=== PATIENT | male | born 1985 | race Caucasian/White ===

== ENCOUNTER 2017-09-12 23:40 | Emergency (ER) | payer SELFPAY ==
[~2017-09-12] VITALS: Ht 180.3 cm; Wt 70.8 kg
== END 2017-09-13 01:30 | disposition left against medical advice (07) ==
LOC: ER 23:40
DX: K08.9 Disorder of teeth and supporting structures, unspecified (principal)

== ENCOUNTER 2018-09-11 15:30 | Emergency (ER) | payer OTHER ==
[~2018-09-11] VITALS: Ht 180.3 cm; Wt 70.8 kg
--- OUTSIDE RECORDS SUMMARY | 2018-09-11 15:33 | XMS REPORT ---
Author Author [facility] Address Unknown Phone Unavailable Care Team Providers Care Title Specialist Name Role Phone Unavailable Unavailable Payers Payer Name Policy Type Policy Number Effective Date Expiration Date Problems This patient has no known problems. Allergies, Adverse Reactions, Alerts Allergy Name Allergy Type Status Severity Reaction(s) Onset Date Inactive Date Treating Clinician Comments No Known Allergies DA Active U 2016-02-10 00:00:00 Medications This patient has no known medications.
--- OUTSIDE RECORDS SUMMARY | 2018-09-11 15:33 | XMS REPORT | Clinical Summary ---
Author Author [facility] Organization [facility] Address Unknown Phone Unavailable Care Team Providers Care Nuclear Weapons Specialist Name Role Phone Asked, No Pcp PCP Unavailable Allergies No Known Allergies Medications End Date Status Medication Sig Dispensed Refills Start Date 08/08/2018 albuterol (PROAIR Inhale 2 1 Inhaler 0 HFA,PROVENTIL puffs every 4 8 HFA,VENTOLIN HFA) 90 (four) hours mcg/actuation inhaler as needed for wheezing for up to 30 days. 07/14/2018 predniSONE (DELTASONE) 50 Take 1 tablet 5 tablet 0 mg tablet (50 mg total) 8 by mouth daily for 5 days. Active Problems Not on file Encounters Care Team Description Date Type Specialty Kevin, Jasmine Camlio Jr., MD Shortness of breath (Primary Dx); Cough; Viral illness 07/09/2018 Emergency Emergency Medicine after 09/10/2017 Social History Date Tobacco Use Types Packs/Day Years Used Former Smoker Smokeless Tobacco: Never Used Alcohol Use Drinks/Week oz/Week Comments Yes OCCASIONAL Sex Assigned at Date Recorded Not on file Industry Job Start Date Occupation Not on file Not on file Not on file Travel End Travel History Travel Start No recent travel history available. Last Filed Vital Signs Time Taken Vital Sign Reading 07/09/2018 8:10 PM [employer] Blood Pressure 132/68 07/09/2018 8:10 PM [employer] Pulse 88 07/09/2018 8:10 PM [employer] Temperature 36.9 C (98.5 F) 07/09/2018 8:10 PM [employer] Respiratory Rate 18 07/09/2018 8:10 PM [employer] Oxygen Saturation 99% - Inhaled Oxygen - Concentration 07/09/2018 5:01 PM [employer] Weight 68 kg (150 lb) 07/09/2018 8:10 PM [employer] Height 182.9 cm (6') 07/09/2018 5:01 PM [employer] Body Mass Index 20.34 Plan of Treatment Health Maintenance Due Date Last Done Comments INFLUENZA VACCINE 04/05/2018 Procedures Comments Procedure Name Priority Date/Time Associated Diagnosis ECG 12-LEAD STAT 07/09/2018 5:49 PM [employer] ESTIMATED GFR STAT 07/09/2018 5:43 PM [employer] TROPONIN STAT 07/09/2018 5:43 PM [employer] COMPREHENSIVE METABOLIC STAT 07/09/2018 PANEL 5:43 PM [employer] HC COMPLETE BLD COUNT STAT 07/09/2018 W/AUTO DIFF 5:43 PM [employer] XR CHEST 2 VW STAT 07/09/2018 5:37 PM [employer] ECG ED PRELIMINARY Routine 07/09/2018 INTERPRETATION 5:16 PM [employer] after 09/10/2017 Results * ECG 12 lead (07/09/2018 5:49 PM [employer]) Ventricular rate 94 [facility] Atrial rate 94 [facility] [place] interval 126 [facility] QRSD interval 94 [facility] QT interval 352 [facility] QTC interval 440 [facility] P axis 1 73 [facility] QRS axis 1 71 [facility] T wave axis 77 [facility] EKG impression Normal sinus rhythm with sinus [facility] arrhythmia-Normal ECG-No previous ECGs available- Performing Organization Address City/State/Zipcode Phone Number [facility] M[facility] [address] [place] [address] * Estimated GFR (07/09/2018 5:43 PM [employer]) Estimated GFR >=90 mL/min/1.73 m2 [facility] DEPARTMENT OF Comment: PATHOLOGY AND C[employer]oryUnitsInte GENOMIC MEDICINE rpretation G1 >=90 Normal or high G2 60-89Mildly decreased [id number] Mildly to moderately decreased Q3y60-16 Moderately to severely decreased G4 15-29Severely decreased G5 <15Kidney failure The eGFR was calculated using the Chronic Kidney Disease Epidemiology Collaboration (CKD-EPI) equation. Interpretation is based on recommendations of the National Kidney Foundation-Kidney Disease Outcomes Quality Initiative (NKF-KDOQI) published in 2014. Specimen Plasma specimen Performing Organization Address City/State/Zipcode Phone Number [facility] [address] [place] [address] PATHOLOGY AND GENOMIC MEDICINE * Troponin (07/09/2018 5:43 PM [employer]) Troponin <0.30 0.00 - 0.30 ng/mL [facility] DEPARTMENT OF Comment: PATHOLOGY AND 0.11 - 1.49 GENOMIC MEDICINE ng/mlMay indicate increased risk of acute coronary syndrome. >=1.5 ng/ml Consistent with acute myocardial infarction. The diagnostic value of a single normal or non-diagnostic result is questionable.Serial samples at 2-6 hour intervals are required to rule out acute myocardial injury. Specimen Plasma specimen Performing Organization Address City/[facility]/Zipcode Phone Number [place] [address] [place] [address] PATHOLOGY AND GENOMIC MEDICINE * CBC with platelet and differential (07/09/2018 5:43 PM [employer]) WBC 8.8 4.2 - 11.0 k/uL [facility] DEPARTMENT OF PATHOLOGY AND GENOMIC MEDICINE RBC 5.10 4.04 - 5.86 m/uL [facility] DEPARTMENT OF PATHOLOGY AND GENOMIC MEDICINE HGB 16.9 13.0 - 17.3 g/dL [facility] DEPARTMENT OF PATHOLOGY AND GENOMIC MEDICINE HCT 47.7 (H) 34.0 - 45.0 % [facility] DEPARTMENT OF PATHOLOGY AND GENOMIC MEDICINE MCV 93.5 80.0 - 98.0 fL [facility] DEPARTMENT OF PATHOLOGY AND GENOMIC MEDICINE MCH 33.1 27.0 - 34.0 pg [facility] DEPARTMENT OF PATHOLOGY AND GENOMIC MEDICINE MCHC 35.4 31.5 - 36.5 g/dL [facility] DEPARTMENT OF PATHOLOGY AND GENOMIC MEDICINE RDW - SD 41.8 37.0 - 51.0 fL [facility] DEPARTMENT OF PATHOLOGY AND GENOMIC MEDICINE MPV 10.1 7.4 - 10.4 fL [facility] DEPARTMENT OF PATHOLOGY AND GENOMIC MEDICINE Platelet count 218 150 - 400 k/uL [facility] DEPARTMENT OF PATHOLOGY AND GENOMIC MEDICINE Nucleated RBC 0.00 /100 WBC [facility] DEPARTMENT OF PATHOLOGY AND GENOMIC MEDICINE Neutrophils 73.1 (H) 36.0 - 66.0 % [facility] DEPARTMENT OF PATHOLOGY AND GENOMIC MEDICINE Lymphocytes 18.3 (L) 24.0 - 44.0 % [facility] DEPARTMENT OF PATHOLOGY AND GENOMIC MEDICINE Monocytes 7.4 (H) 0.0 - 6.0 % [facility] DEPARTMENT OF PATHOLOGY AND GENOMIC MEDICINE Eosinophils 0.2 0.0 - 6.0 % [facility] DEPARTMENT OF PATHOLOGY AND GENOMIC MEDICINE Basophils 0.7 0.0 - 1.2 % [facility] DEPARTMENT OF PATHOLOGY AND GENOMIC MEDICINE Immature granulocytes 0.3 0.0 - 1.0 % [facility] DEPARTMENT OF PATHOLOGY AND GENOMIC MEDICINE Specimen Blood Performing Organization Address City/[facility]/Zipcode Phone Number [place] [address] [place] [address] PATHOLOGY AND GENOMIC MEDICINE * Comprehensive metabolic panel (07/09/2018 5:43 PM [employer]) Sodium 138 135 - 150 mEq/L [facility] DEPARTMENT OF PATHOLOGY AND GENOMIC MEDICINE Potassium 3.5 3.5 - 5.0 mEq/L [facility] DEPARTMENT OF PATHOLOGY AND GENOMIC MEDICINE Chloride 97 (L) 98 - 112 mEq/L [facility] DEPARTMENT OF PATHOLOGY AND GENOMIC MEDICINE CO2 24 24 - 31 mmol/L [facility] DEPARTMENT OF PATHOLOGY AND GENOMIC MEDICINE Anion gap 17@ANIO (H) 7 - 15 mEq/L [facility] DEPARTMENT OF PATHOLOGY AND GENOMIC MEDICINE BUN <4 (L) 7 - 18 mg/dL [facility] DEPARTMENT OF PATHOLOGY AND GENOMIC MEDICINE Creatinine 0.70 0.70 - 1.20 mg/dL [facility] DEPARTMENT OF PATHOLOGY AND GENOMIC MEDICINE Glucose 86 65 - 100 mg/dL [facility] DEPARTMENT OF PATHOLOGY AND GENOMIC MEDICINE Calcium 10.3 (H) 8.3 - 10.2 mg/dL [facility] DEPARTMENT OF PATHOLOGY AND GENOMIC MEDICINE Protein 8.2 6.3 - 8.3 g/dL [facility] DEPARTMENT OF PATHOLOGY AND GENOMIC MEDICINE Albumin 4.7 3.5 - 5.0 g/dL [facility] DEPARTMENT OF PATHOLOGY AND GENOMIC MEDICINE A/G ratio 1.3 0.7 - 3.8 [facility] DEPARTMENT OF PATHOLOGY AND GENOMIC MEDICINE Alkaline phosphatase 48 0 - 129 U/L [facility] DEPARTMENT OF PATHOLOGY AND GENOMIC MEDICINE AST 30 10 - 50 U/L [facility] DEPARTMENT OF PATHOLOGY AND GENOMIC MEDICINE ALT 29 5 - 50 U/L [facility] DEPARTMENT OF PATHOLOGY AND GENOMIC MEDICINE Total bilirubin 0.6 0.2 - 1.2 mg/dL [facility] DEPARTMENT OF PATHOLOGY AND GENOMIC MEDICINE Specimen Plasma specimen Performing Organization Address City/State/Zipcode Phone Number [place] [address] [place] [address] PATHOLOGY AND GENOMIC MEDICINE * XR Chest 2 Vw (07/09/2018 5:37 PM [employer]) Narrative Performed At EXAMINATION:XR CHEST 2 VW ARLET CLINICAL HISTORY: Chest pain or SOBpleurisy or effusion suspected COMPARISON:None IMPRESSION: No radiographic evidence for acute cardiopulmonary process. Cardiomediastinal silhouette is within normal limits of size. No focal or confluent airspace consolidation is seen to suggest acute pneumonia. No sizable pleural effusion. No pneumothorax identified. No acute osseous abnormalities are visualized. [facility]-[id number] Procedure Note Hm Interface, Radiology Results Incoming - 07/09/2018 5:43 PM [employer] EXAMINATION: XR CHEST 2 VW CLINICAL HISTORY: Chest pain or SOB pleurisy or effusion suspected COMPARISON: None IMPRESSION: No radiographic evidence for acute cardiopulmonary process. Cardiomediastinal silhouette is within normal limits of size. No focal or confluent airspace consolidation is seen to suggest acute pneumonia. No sizable pleural effusion. No pneumothorax identified. No acute osseous abnormalities are visualized. [facility]-[id number] Performing Organization Address City/State/Zipcode Phone Number [facility] [address] [place] [address] * ECG ED Preliminary Interpretation - NOT AN ORDER (07/09/2018 5:16 PM [employer]) Narrative Performed At Jasmine Bear Jr., MD 07/10/2018 12:43 AM ECG ED Preliminary Interpretation - Not an Order Performed by: JASMINE BEAR JR. Authorized by: JASMINE BEAR JR. ECG reviewed by ED Physician in the absence of a organic lab worker: yes Interpretation: Interpretation: normal Rate: ECG rate:94 ECG rate assessment: normal Rhythm: Rhythm: sinus rhythm Ectopy: Ectopy: none QRS: QRS axis:Normal Conduction: Conduction: normal ST segments: ST segments:Normal T waves: T waves: normal after 09/10/2017 Advance Directives Patient has advance care planning documents on file. For more information, severo bill contact: Chapito Kamara [address] [place] [address]
[2018-09-11] MEDS ORDERED: ALBUTEROL/IPRATROPIUM 3 ML NEB NEB ONE (16:45)
[2018-09-11] MEDS ORDERED: CEFTRIAXONE SOD 1 GM VIAL IM ONE (16:45)
[2018-09-11] MEDS ORDERED: DEXAMETHASONE SOD PHOS 10 MG/1 ML VIAL IV ONE (16:45)
--- NOTE | 2018-09-11 19:04 | Diagnostic Imaging Report ---
EXAMINATION: Chest AP portable INDICATION: Cough and shortness of breath COMPARISON: None FINDINGS: TUBES and LINES: None. LUNGS: Bilateral perihilar, peribronchial thickening and perihilar streaky densities, left greater than right. There is no evidence of pneumonia or pulmonary edema. PLEURA: No pleural effusion or pneumothorax. HEART AND MEDIASTINUM: The cardiomediastinal silhouette is unremarkable. BONES AND SOFT TISSUES: No acute osseous lesion. UPPER ABDOMEN: No free air under the diaphragm. IMPRESSION: Viral infection versus reactive airway disease. Signed by: Dr. Derrick Thornton M.D. on 09/11/2018 7:01 PM
[2018-09-11 20:18] VITALS: BP 129/90
== END 2018-09-11 21:27 | disposition home or self-care (01) ==
LOC: ER 15:30
DX: R50.9 Fever, unspecified (principal); R05 Cough; J02.9 Acute pharyngitis, unspecified; J01.00 Acute maxillary sinusitis, unspecified
CPT/HCPCS: 71045; 99283